=== PATIENT | female | born 1940 | race Caucasian/White ===

== ENCOUNTER 2017-09-20 13:44 | Emergency (ER) | payer MEDICARE, OTHER ==
[2014-03-04 15:01] VITALS: BMI 21.6
[~2017-09-20 13:44] MED LIST: ATIVAN0.5 MG PO; SPIRIVA18 MCG INH; SYMBICORT 16010.2 GM INH
[2017-09-20 15:55] LABS: BASOPHILS 0.1 % (0-2); EOSINOPHILS 1.3 % (0-7); HEMATOCRIT 44.1 % (36.0-48.0); HEMOGLOBIN 14.7 g/dL (12-16); IMMATURE GRANULOCYTES 0.3 % (0-5); LYMPHOCYTES 6.5 % (15-50); MCH 31.5 pg (26.0-34.0); MCHC 33.3 g/dL (31.0-37.0); MCV 94.4 fL (80.0-100.0); MEAN PLATELET VOLUME 10.6 fL (7.4-10.4); MONOCYTES 7.7 % (2-11); NEUTROPHILS 84.1 % (40-80); PLATELET COUNT 198 10x3/uL (130-400); RBC 4.67 10x6/uL (4.00-5.40); RDW 12.8 % (11.5-14.5); WBC 7.8 10x3/uL (4.8-10.8)
[2017-09-20 16:01] LABS: ALBUMIN 3.9 g/dL (3.4-5.0); ALKALINE PHOSPHATASE 107 U/L (46-116); ALT (SGPT) 26 U/L (10-68); BILIRUBIN - TOTAL 0.28 mg/dL (0.2-1.3); CALC OSMOLALITY 283 mosm/kg (275-300); CALCIUM 9.1 mg/dL (8.5-10.1); CARBON DIOXIDE 27.2 mmol/L (21.0-32.0); CHLORIDE - SERUM 102 mmol/L (98-107); CREATININE - SERUM 1.4 mg/dL (0.6-1.3); GLUCOSE 94 mg/dL (74-106); POTASSIUM - SERUM 4.6 mmol/L (3.5-5.1); PROTEIN - SERUM 8.1 g/dL (6.4-8.2); SODIUM 139 mmol/L (136-145); UREA NITROGEN 30 mg/dL (7-18); eGFR NON AFRICAN AMERICAN 39 mL/min (90-120)
[2017-09-20 16:10] LABS: CREATINE KINASE 97 UL (21-215); PRO BNP 326 pg/mL (0-125)
[2017-09-20 16:12] LABS: TROPONIN-I < 0.017 ng/mL (0.000-0.060)
[2017-09-20 16:45] LABS: AMYLASE - SERUM 120 U/L (25-115); LIPASE 247 U/L (73-393)
[2017-09-20 17:35] LABS: APPEARANCE CLEAR (CLEAR); BILIRUBIN NEGATIVE (NEGATIVE); COLOR YELLOW (YELLOW); GLUCOSE NEGATIVE (NEGATIVE); KETONE NEGATIVE (NEGATIVE); NITRITE NEGATIVE (NEGATIVE); PROTEIN TRACE mg/dL (NEGATIVE); SPECIFIC GRAVITY 1.015 (1.005-1.020); UROBILINOGEN NORMAL (NORMAL)
[2017-09-20 17:36] LABS: BACTERIA FEW /hpf (NONE SEEN); RED CELLS - URINE 0-5 /hpf (0-5); WHITE CELLS - URINE 0-5 /hpf (0-5)
== END 2017-09-20 20:01 | disposition home or self-care (01) ==
LOC: D.ER 13:44
PROVIDERS: Nurse Practitioner Family
DX: J44.1 Chronic obstructive pulmonary disease with (acute) exacerbation (principal); N39.0 Urinary tract infection, site not specified; J30.9 Allergic rhinitis, unspecified

== ENCOUNTER 2017-09-25 14:01 | Inpatient (IN) | payer MEDICARE, OTHER ==
[~2017-09-25] VITALS: Ht 162.6 cm; Wt 55.5 kg
--- NOTE | ~2017-09-25 | CN ---
PATIENT NAME:SAFIA VIGIL MEDICAL RECORD: [id number] : 44 LOCATION:D. D.2112 ADMIT DATE: 09/25/17 ACCOUNT: [id number] CONSULTING PHYSICIAN: JASPAL VELEZ MD REFERRING PHYSICIAN: ZAK JARAMILLO DO DATE OF CONSULTATION: 09/26/2017 CONSULT REQUESTING PHYSICIAN: Zak Jaramillo DO REASON FOR CONSULTATION: Acute exacerbation of chronic obstructive pulmonary disease, acute hypoxic respiratory failure. HISTORY OF PRESENT ILLNESS: Ms. Vigil is a 76-year-old female who has a history of severe COPD. According to the patient, she is sick for the last few days. She is coughing. She is wheezing. She has shortness of breath. She is positive for influenza A. REVIEW OF SYSTEMS: Mainly in the history of present illness. PAST MEDICAL HISTORY: 1. Hypoglycemia. 2. Chronic obstructive pulmonary disease. 3. Anxiety. PAST SURGICAL HISTORY: 1. She has a . 2. History of respiratory failure in the past. 3. Status post colonoscopy and colon resection. 4. Status post ileostomy. ALLERGIES: There are no known drug allergies. MEDICATIONS: On [place] was reviewed. PERSONAL AND SOCIAL HISTORY: The patient is an ex-smoker. She is a nondrinker. FAMILY HISTORY: Significant for cardiovascular disease and diabetes. PHYSICAL EXAMINATION: GENERAL: Now, the patient is lying comfortably in bed. She is not in acute distress. VITAL SIGNS: Her pulse ox is 97% on 2 liters nasal cannula. HEENT: Conjunctivae is pink. Sclerae nonicteric. NECK: Supple. No JVD. CHEST: There are bilateral crackles, wheeze on forceful expiration. HEART: Rhythm regular, normal sound, no murmur. ABDOMEN: Soft, bowel sounds present. No hepatosplenomegaly. RECTAL: Deferred. EXTREMITIES: No cyanosis, no clubbing, no pedal edema. SKIN: Warm, normal turgor. CENTRAL NERVOUS SYSTEM: The patient is awake and alert. There are no obvious cranial nerve abnormality. The gait was not tested. IMAGING: Chest radiograph, there is bibasilar interstitial prominence. There is some possible chronic interstitial changes. CONSULT REPORT [id number] SAFIA VIGIL OTHER LABORATORY DATA: CBC: The WBC is 6.9, hemoglobin 14.1, hematocrit 42.8, platelet count 142. Chemistry: Sodium is 138, potassium 4.1, BUN is 24, creatinine 1.3. ABG: The pH is 7.32, pCO2 of 47.9, the pO2 is 147, and bicarbonate is 25. IMPRESSION: 1. Acute exacerbation of chronic obstructive pulmonary disease. 2. Bilateral pneumonia, most likely community-acquired pneumonia. 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 3. Influenza A. 4. Acute hypoxic respiratory failure. 5. Anxiety. 6. Pneumonia, bilateral, most likely community-acquired pneumonia. RECOMMENDATION: 1. I will discontinue vancomycin, start Levaquin IV. Continue penicillin IV. Continue methylprednisolone IV, albuterol/ipratropium nebulizer. Start Brovana and budesonide nebulizer. 2. Xanax for anxiety. Dr. Jaramillo, thank you for involving me in the care of Ms. Vigil. TRANSINT:[id number] Voice Confirmation ID: [id number] DOCUMENT ID: [id number] JASPAL VELEZ MD at 1340 CC: ZAK JARAMILLO DO [id number] DICTATION DATE: 09/26/17 1536 ROCKET TEST FIRE WORKER: 09/26/17 1740 ADM IN [facility] [address] [place] [address]
[2017-09-25 15:50] LABS: ALBUMIN 3.2 g/dL (3.4-5.0); ANION GAP 16.1 mmol/L (8-16); BILIRUBIN - TOTAL 0.3 mg/dL (0.2-1.3); CALCIUM 8.6 mg/dL (8.5-10.1); CARBON DIOXIDE 25.5 mmol/L (21.0-32.0); CREATININE - SERUM 1.6 mg/dL (0.6-1.3); POTASSIUM - SERUM 4.6 mmol/L (3.5-5.1); PROTEIN - SERUM 6.7 g/dL (6.4-8.2)
[2017-09-25 15:52] LABS: BASOPHILS 0.1 % (0-2); EOSINOPHILS 0.1 % (0-7); HEMATOCRIT 42.8 % (36.0-48.0); HEMOGLOBIN 14.1 g/dL (12-16); IMMATURE GRANULOCYTES 0.1 % (0-5); LYMPHOCYTES 3.6 % (15-50); MCH 30.9 pg (26.0-34.0); MCHC 32.9 g/dL (31.0-37.0); MCV 93.9 fL (80.0-100.0); MEAN PLATELET VOLUME 10.8 fL (7.4-10.4); MONOCYTES 2.6 % (2-11); NEUTROPHILS 93.5 % (40-80); RBC 4.56 10x6/uL (4.00-5.40); RDW 12.8 % (11.5-14.5); WBC 6.9 10x3/uL (4.8-10.8)
[2017-09-25 15:58] LABS: INR 1.08 (0.85-1.17); PLATELET COUNT 142 10x3/uL (130-400); PROTIME 13.6 SECONDS (11.6-15.0)
[2017-09-25 16:23] LABS: MAGNESIUM - SERUM 1.8 mg/dL (1.8-2.4)
[2017-09-25 16:24] LABS: TROPONIN-I 0.066 ng/mL (0.000-0.060)
[2017-09-25 16:37] LABS: APPEARANCE CLEAR (CLEAR); BILIRUBIN NEGATIVE (NEGATIVE); COLOR YELLOW (YELLOW); GLUCOSE NEGATIVE (NEGATIVE); KETONE NEGATIVE (NEGATIVE); NITRITE NEGATIVE (NEGATIVE); PROTEIN TRACE mg/dL (NEGATIVE); SPECIFIC GRAVITY 1.025 (1.005-1.020); UROBILINOGEN NORMAL (NORMAL)
[2017-09-26 00:49] LABS: CKMB 2.4 U/L (0.0-3.6); CREATINE KINASE 93 UL (21-215); TROPONIN-I 0.149 ng/mL (0.000-0.060)
[2017-09-26 07:27] LABS: HEMATOCRIT 40.2 % (36.0-48.0); HEMOGLOBIN 13.3 g/dL (12-16); MCH 30.8 pg (26.0-34.0); MCHC 33.1 g/dL (31.0-37.0); MCV 93.1 fL (80.0-100.0); MEAN PLATELET VOLUME 10.8 fL (7.4-10.4); PLATELET COUNT 137 10x3/uL (130-400); RBC 4.32 10x6/uL (4.00-5.40); RDW 12.5 % (11.5-14.5)
[2017-09-26 07:28] LABS: WBC 2.5 10x3/uL (4.8-10.8)
[2017-09-26 07:50] LABS: LYMPHOCYTES 13 % (15-50); MONOCYTES 1 % (2-11); NEUTROPHILS 85 % (40-80); PLATELET ESTIMATE NORMAL
[2017-09-26 08:34] LABS: ALBUMIN 2.9 g/dL (3.4-5.0); ALKALINE PHOSPHATASE 71 U/L (46-116); ALT (SGPT) 24 U/L (10-68); CALC OSMOLALITY 283 mosm/kg (275-300); CARBON DIOXIDE 22.6 mmol/L (21.0-32.0); CHLORIDE - SERUM 105 mmol/L (98-107); CKMB 3.5 U/L (0.0-3.6); CREATINE KINASE 121 UL (21-215); CREATININE - SERUM 1.3 mg/dL (0.6-1.3); GLUCOSE 164 mg/dL (74-106); POTASSIUM - SERUM 4.1 mmol/L (3.5-5.1); PROTEIN - SERUM 6.8 g/dL (6.4-8.2); SODIUM 138 mmol/L (136-145); UREA NITROGEN 24 mg/dL (7-18); eGFR NON AFRICAN AMERICAN 42 mL/min (90-120)
[2017-09-26 08:35] LABS: TROPONIN-I 0.079 ng/mL (0.000-0.060)
[2017-09-26 13:12] LABS: CREATINE KINASE 148 UL (21-215); TROPONIN-I 0.051 ng/mL (0.000-0.060)
[2017-09-26 14:04] VITALS: BP 185/86; Ht 162.6 cm; Wt 55.5 kg
[2017-09-26 19:00] VITALS: BP 198/97
[2017-09-27 04:00] VITALS: BP 167/85
[2017-09-27 05:34] LABS: BASOPHILS 0 % (0-2); EOSINOPHILS 0 % (0-7); HEMATOCRIT 38.2 % (36.0-48.0); HEMOGLOBIN 12.5 g/dL (12-16); IMMATURE GRANULOCYTES 0.4 % (0-5); LYMPHOCYTES 4.8 % (15-50); MCH 30.5 pg (26.0-34.0); MCHC 32.7 g/dL (31.0-37.0); MCV 93.2 fL (80.0-100.0); MEAN PLATELET VOLUME 10.6 fL (7.4-10.4); NEUTROPHILS 91.8 % (40-80); PLATELET COUNT 135 10x3/uL (130-400); RDW 12.5 % (11.5-14.5)
[2017-09-27 05:39] LABS: ALBUMIN 2.8 g/dL (3.4-5.0); BILIRUBIN - TOTAL 0.38 mg/dL (0.2-1.3); CALCIUM 7.8 mg/dL (8.5-10.1); CREATININE - SERUM 1.4 mg/dL (0.6-1.3); MAGNESIUM - SERUM 1.8 mg/dL (1.8-2.4); PHOSPHOROUS 3.1 mg/dL (2.5-4.9); PROTEIN - SERUM 6.6 g/dL (6.4-8.2)
[2017-09-27 05:43] LABS: WBC 7.9 10x3/uL (4.8-10.8)
[2017-09-27 05:49] LABS: ANION GAP 10.3 mmol/L (8-16); POTASSIUM - SERUM 3.3 mmol/L (3.5-5.1)
[2017-09-27 07:44] VITALS: BP 164/95
[2017-09-27 12:29] VITALS: BP 185/92
[2017-09-27 15:09] VITALS: BP 179/88
[2017-09-27 20:00] VITALS: BP 201/100
[2017-09-28] VITALS: BP 170/87
[2017-09-28 04:37] LABS: BASOPHILS 0 % (0-2); EOSINOPHILS 0 % (0-7); HEMATOCRIT 39.7 % (36.0-48.0); HEMOGLOBIN 13.2 g/dL (12-16); IMMATURE GRANULOCYTES 0.5 % (0-5); LYMPHOCYTES 3.3 % (15-50); MCH 30.6 pg (26.0-34.0); MCHC 33.2 g/dL (31.0-37.0); MCV 91.9 fL (80.0-100.0); MEAN PLATELET VOLUME 10.7 fL (7.4-10.4); MONOCYTES 4.8 % (2-11); NEUTROPHILS 91.4 % (40-80); PLATELET COUNT 153 10x3/uL (130-400); RBC 4.32 10x6/uL (4.00-5.40); RDW 12.5 % (11.5-14.5); WBC 8.4 10x3/uL (4.8-10.8)
[2017-09-28 04:45] LABS: ALBUMIN 2.9 g/dL (3.4-5.0); ANION GAP 7.9 mmol/L (8-16); BILIRUBIN - TOTAL 0.34 mg/dL (0.2-1.3); CALCIUM 7.9 mg/dL (8.5-10.1); CARBON DIOXIDE 33.1 mmol/L (21.0-32.0); CREATININE - SERUM 1.4 mg/dL (0.6-1.3); PROTEIN - SERUM 6.7 g/dL (6.4-8.2)
[2017-09-28 09:19] VITALS: BP 177/101
[2017-09-28 13:05] VITALS: BP 172/92
[2017-09-28 16:04] VITALS: BP 192/88
[2017-09-28 20:00] VITALS: BP 178/96
[2017-09-29 04:00] VITALS: BP 150/80
[2017-09-29 05:45] LABS: ANION GAP 13.6 mmol/L (8-16); CALCIUM 8.2 mg/dL (8.5-10.1); CARBON DIOXIDE 27.3 mmol/L (21.0-32.0); CREATININE - SERUM 1.4 mg/dL (0.6-1.3); POTASSIUM - SERUM 3.9 mmol/L (3.5-5.1)
[2017-09-29 05:57] LABS: BASOPHILS 0 % (0-2); EOSINOPHILS 0 % (0-7); HEMATOCRIT 39.3 % (36.0-48.0); HEMOGLOBIN 13.3 g/dL (12-16); IMMATURE GRANULOCYTES 0.5 % (0-5); LYMPHOCYTES 4.5 % (15-50); MCH 30.8 pg (26.0-34.0); MCHC 33.8 g/dL (31.0-37.0); MEAN PLATELET VOLUME 10.9 fL (7.4-10.4); MONOCYTES 5.9 % (2-11); NEUTROPHILS 89.1 % (40-80); PLATELET COUNT 160 10x3/uL (130-400); RBC 4.32 10x6/uL (4.00-5.40); RDW 12.5 % (11.5-14.5); WBC 8.3 10x3/uL (4.8-10.8)
[2017-09-29 10:15] VITALS: BP 179/96
[2017-09-29 12:35] VITALS: BP 181/105
[2017-09-29 16:19] VITALS: BP 125/84
[2017-09-29 20:00] VITALS: BP 165/86
[2017-09-30] VITALS: BP 154/86
[2017-09-30 04:00] VITALS: BP 164/100
[2017-09-30 05:14] LABS: BASOPHILS 0 % (0-2); EOSINOPHILS 0.2 % (0-7); HEMATOCRIT 39.6 % (36.0-48.0); HEMOGLOBIN 13.1 g/dL (12-16); IMMATURE GRANULOCYTES 0.6 % (0-5); LYMPHOCYTES 9.3 % (15-50); MCH 30.5 pg (26.0-34.0); MCHC 33.1 g/dL (31.0-37.0); MCV 92.3 fL (80.0-100.0); MEAN PLATELET VOLUME 10.2 fL (7.4-10.4); MONOCYTES 7.8 % (2-11); NEUTROPHILS 82.1 % (40-80); PLATELET COUNT 164 10x3/uL (130-400); RBC 4.29 10x6/uL (4.00-5.40); RDW 12.6 % (11.5-14.5); WBC 8.1 10x3/uL (4.8-10.8)
[2017-09-30 05:41] LABS: ANION GAP 12.2 mmol/L (8-16); CALCIUM 8.3 mg/dL (8.5-10.1); CARBON DIOXIDE 27.4 mmol/L (21.0-32.0); CREATININE - SERUM 1.3 mg/dL (0.6-1.3); POTASSIUM - SERUM 3.6 mmol/L (3.5-5.1)
[2017-09-30 09:09] VITALS: BP 166/82
[2017-09-30 14:53] VITALS: BP 170/82
[2017-09-30 16:39] VITALS: BP 171/96
[2017-09-30 21:11] VITALS: BP 146/86
[2017-10-01 01:35] VITALS: BP 146/77
[2017-10-01 04:31] LABS: BASOPHILS 0.1 % (0-2); EOSINOPHILS 0.4 % (0-7); HEMATOCRIT 39.4 % (36.0-48.0); HEMOGLOBIN 12.8 g/dL (12-16); IMMATURE GRANULOCYTES 0.7 % (0-5); LYMPHOCYTES 6.8 % (15-50); MCH 30.3 pg (26.0-34.0); MCHC 32.5 g/dL (31.0-37.0); MCV 93.1 fL (80.0-100.0); MEAN PLATELET VOLUME 10.5 fL (7.4-10.4); MONOCYTES 7.4 % (2-11); NEUTROPHILS 84.6 % (40-80); PLATELET COUNT 194 10x3/uL (130-400); RBC 4.23 10x6/uL (4.00-5.40); RDW 12.6 % (11.5-14.5)
[2017-10-01 05:06] LABS: ALBUMIN 2.7 g/dL (3.4-5.0); ANION GAP 10.1 mmol/L (8-16); BILIRUBIN - TOTAL 0.35 mg/dL (0.2-1.3); CALCIUM 8.1 mg/dL (8.5-10.1); CARBON DIOXIDE 32.2 mmol/L (21.0-32.0); CREATININE - SERUM 1.4 mg/dL (0.6-1.3); PROTEIN - SERUM 6.2 g/dL (6.4-8.2)
[2017-10-01 05:17] LABS: POTASSIUM - SERUM 4.3 mmol/L (3.5-5.1)
[2017-10-01 05:33] VITALS: BP 155/79
[2017-10-01] MEDS ORDERED: LEVAQUIN750 MG PO (06:49)
[2017-10-01] MEDS ORDERED: CATAPRES0.1 MG PO (06:50)
[2017-10-01] MEDS ORDERED: IPRAT-ALBUT 0.5-3 ML INH (06:50)
[2017-10-01] MEDS ORDERED: NORVASC10 MG PO (06:50)
[2017-10-01] MEDS ORDERED: LISINOPRIL10 MG PO (06:50)
[2017-10-01] MEDS ORDERED: BROVANA15 MCG/2 M INH (06:50)
[2017-10-01] MEDS ORDERED: PULMICORT0.5 MG/21 UPD (06:51)
[2017-10-01] MEDS ORDERED: CELEXA20 MG PO (06:51)
[2017-10-01] MEDS ORDERED: MUCINEX DM ER1 EAC1 PO (06:51)
[2017-10-01] MEDS ORDERED: BENZONATATE200 MG PO (06:51)
[2017-10-01] MEDS ORDERED: DALIRESP500 MCG PO (06:51)
[2017-10-01] MEDS ORDERED: STERAPRED DS 1210 MG PO (06:52)
[2017-10-01 07:53] VITALS: BP 142/81
[2017-10-01 11:14] VITALS: BP 138/76
[2017-10-01 15:02] VITALS: BP 129/68
== END 2017-10-01 18:16 | DRG 193 ==
LOC: D.ER 14:01 → D.M2 21:34 → D.EDHOLD 21:55 → D.ER 21:55 → D.MS 09-26 06:54 → D.M2 09-26 06:54 → D.EDHOLD 09-26 06:54 → D.MS 09-26 07:21 → D.EDHOLD 09-26 16:54 → D.M2 09-26 16:54
PROVIDERS: Emergency Medicine; Family Medicine; Nurse Practitioner Family
DX: J10.00 Influenza due to other identified influenza virus with unspecified type of pneumonia (principal); J96.01 Acute respiratory failure with hypoxia; J44.0 Chronic obstructive pulmonary disease with (acute) lower respiratory infection; J44.1 Chronic obstructive pulmonary disease with (acute) exacerbation; J20.9 Acute bronchitis, unspecified; H35.30 Unspecified macular degeneration; F41.9 Anxiety disorder, unspecified; I10 Essential (primary) hypertension; E87.6 Hypokalemia; Z87.891 Personal history of nicotine dependence

== ENCOUNTER 2017-10-01 18:42 | Inpatient (IN) | payer MEDICARE ==
[~2017-10-01] VITALS: Ht 162.6 cm; Wt 56.2 kg
--- NOTE | ~2017-10-01 | RHP ---
PATIENT: SAFIA CALHOUN MEDICAL RECORD: [id number] ACCOUNT: [id number] LOCATION: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 HISTORY OF PRESENT ILLNESS: The patient admitted to the inpatient rehab for neurological condition of disuse myopathy. A 76-year-old female patient admitted on 09/25 with cough, wheezing, increasing shortness of breath, had gotten worse over the previous week. Upon admit, she was found to be positive for influenza B. She was also found to have pneumonia and acute exacerbation of COPD, respiratory failure and hypoxia. She had pulmonary consult and followed her throughout her stay. She has been receiving Tamiflu, steroid therapy, and IV antibiotics and slowly improved and is able to ambulate with some PT, but is still pretty weak, jittery, and very nervous with the use of steroids. She has proximal muscle weakness from getting up from bed to chair. She is currently on 3 liters of O2 via nasal cannula. She lives at home with her , was independent with ADLs and mobility. She is currently set up for [id number] assist for ADLs and [id number] assist for mobility. She and her would like her to return home hopefully to her prior level of functioning or better. Comorbidities in this patient include acute exacerbation of chronic obstructive pulmonary disease, bilateral pneumonia. She has got a history of influenza A and B, acute hypoxic respiratory failure, anxiety, elevated troponin secondary to stress leak, and tobacco use. PAST MEDICAL HISTORY: Significant for low blood sugars, chronic obstructive pulmonary disease, anxiety, macular degeneration, tobacco use, renal failure, sepsis, diarrhea. PAST SURGICAL HISTORY: Includes , tubal ligation, history of respiratory failure in the past. She has had a partial colon resection, post ileostomy with reversal, and polyp removal. ALLERGIES: PENICILLIN. CURRENT MEDICATIONS: Include albuterol updrafts. She is on prednisone, on a tapering dosage. Daliresp 500 mcg daily. She is on Zestril 10 mg daily, Levaquin 750 mg daily, citalopram 10 mg daily, amlodipine 10 mg daily, Ativan 1.5 mg b.i.d. p.r.n. She is on Mucinex 2 tabs b.i.d., clonidine 0.1 mg every 6 hours p.r.n., Pulmicort 0.5 mg b.i.d., Tessalon Perles 200 mg t.i.d. p.r.n., Brovana 15 mcg b.i.d., and MiraLax 17 grams in 8 ounces of water daily. HABITS: Does have a history of tobacco use. FAMILY HISTORY: Noncontributory. SOCIAL HISTORY: The patient hopes to return back home with her and get HISTORY AND PHYSICAL [id number] SAFIA CALHOUN back to her prior level of functioning. REVIEW OF SYSTEMS: GENERAL: Does complain of some weakness and fatigue. HEENT: Denies cold, cough, or congestion. CARDIOVASCULAR: Denies chest pain. PHYSICAL EXAMINATION: VITAL SIGNS: Stable, afebrile. GENERAL: A thin female, in no acute distress upon exam. HEENT: Normocephalic and atraumatic. Mucosa moist. NECK: Supple. No lymphadenopathy. LUNGS: Coarse breath sounds bilaterally with expiratory wheezes appreciated. HEART: Regular rate and rhythm. ABDOMEN: Benign. EXTREMITIES: No clubbing, cyanosis or edema. NEUROLOGIC: She seems intact. LABORATORY DATA: Her white count is 12.2, H&H of 13 and 39, platelet count is 218. Her sodium is 146, potassium 4.0, BUN and creatinine of 26 and 1.4, and blood sugar was noted to be 75. 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 The patient has potential to make improvement. We will institute the following multidisciplinary therapies including, but not limited to physical, occupational, respiratory, speech, nutritional services, prosthetics and orthotics. Given her complex condition and risk for more complications, rehabilitation services cannot be provided at a low level of care such as a retirement facility. PLAN: 1. Admit to [facility] for intensive inpatient therapy to include the following disciplines: A. Physical therapy to improve gait, all transfer skills and bed mobility to a modified independent level. B. Occupational therapy to improve activities of daily living to a modified independent level. C. Case management to assist with discharge planning and placement options. D. Nutrition to assist with nutritional needs. E. Rehabilitation nursing to assist in monitoring the patient's underlying medical conditions and to assist with any type of bowel or bladder management. 2. The patient's current medications will be continued. 3. The patient will be placed on standard fall precautions. 4. The patient's estimated length of stay is approximately 7-10 days. 5. Discuss this patient during care team staff meeting this week and will update FIM scores in the a.m. and we will treat appropriately throughout her stay. TRANSINT:[id number] Voice Confirmation ID: [id number] DOCUMENT ID: [id number] JIM notes whether there has been none or any medical/functional change since admission: HISTORY AND PHYSICAL [id number] SAFIA CALHOUN E - No change since preadmission screen. JIM attests patient continues to be appropriate for IRF: - Continues to be appropriate. JAKUB SILVER MD at 1344 CC: [id number] DICTATION DATE: 10/02/17 0846 FAMILY LIFE COUNSELOR: 10/02/17 1024 DIS IN 10/06/17 [facility] [address] [place] [address]
--- NOTE | ~2017-10-01 | DS ---
PATIENT:SAFIA CALHOUN :44 MEDICAL RECORD: [id number] DISCHARGE SUMMARY ADMISSION DATE: 10/01/17 DISCHARGE DATE: 10/06/17 This is a discharge dated 10/06/2017 from the inpatient rehab. PRIMARY DIAGNOSIS: Decreased functional ability and ability to provide activities of daily living secondary to diffuse myopathy secondary to influenza B. SECONDARY DIAGNOSES: 1. COPD exacerbation. 2. Pneumonia. 3. Hypertension. 4. Acute hypoxic respiratory failure. 5. Anxiety. 6. Macular degeneration. 7. Renal insufficiency. 8. Chronic diarrhea. HOSPITAL COURSE: Full H&P is located elsewhere on the chart on this 76-year-old female who was admitted to inpatient rehab for physical therapy and occupational therapy to improve gait, transfer skills, bed mobility, and activities of daily living to modified independent level. She was evaluated by PT and OT and their plans of care were followed. She required halfway care for observation, assessment, and medication administration. She remained on appropriate home medications. She was on supplemental oxygen to keep sats greater than 92%. She was on Brovana, Pulmicort, and DuoNeb nebulized for respiratory support; and Levaquin for antibiotic coverage. She was on a steroid taper for treatment of COPD exacerbation. She was cooperative with therapies, progressing towards goals. Case management was involved for discharge planning. She was considered stable for discharge on 10/06/2017. DISCHARGE MEDICATIONS: As per discharge medication reconciliation. DISCHARGE DISPOSITION: The patient is discharged home. She will continue her current diet and level of activity. She will have home health for continued nursing, PT, and OT. She will follow up with primary care in one week and specialist as directed. At least 30 minutes was spent in this discharge activity. TRANSINT:[id number] Voice Confirmation ID: [id number] DOCUMENT ID: [id number] Dictated By: MERI HUTCHINS I have interviewed/examined the above patient and agree with these documented findings. DISCHARGE SUMMARY REPORT [id number] SAFIA CALHOUN SCOTT MD at 1355 at 1349 CC: [id number] DICTATION DATE: 10/28/17 1502 ANESTHESIOLOGY TEACHER: 10/28/17 1606 DIS IN 10/06/17 [facility] [id number] [place] [address]
[~2017-10-01 18:42] MED LIST changes: +BENZONATATE200 MG PO; +BROVANA15 MCG/2 M INH; +CATAPRES0.1 MG PO; +CELEXA20 MG PO; +DALIRESP500 MCG PO; +IPRAT-ALBUT 0.5-3 ML INH; +LEVAQUIN750 MG PO; +LISINOPRIL10 MG PO; +MUCINEX DM ER1 EAC1 PO; +NORVASC10 MG PO; +PULMICORT0.5 MG/21 UPD; +STERAPRED DS 1210 MG PO
[2017-10-01 21:00] VITALS: BP 151/74
[2017-10-01 23:34] VITALS: BMI 21.3
[2017-10-02 06:32] LABS: BASOPHILS 0.1 % (0-2); EOSINOPHILS 1.4 % (0-7); HEMATOCRIT 39.8 % (36.0-48.0); HEMOGLOBIN 13.1 g/dL (12-16); IMMATURE GRANULOCYTES 0.6 % (0-5); LYMPHOCYTES 6.5 % (15-50); MCH 30.5 pg (26.0-34.0); MCHC 32.9 g/dL (31.0-37.0); MCV 92.8 fL (80.0-100.0); MEAN PLATELET VOLUME 10.2 fL (7.4-10.4); NEUTROPHILS 83.4 % (40-80); PLATELET COUNT 218 10x3/uL (130-400); RBC 4.29 10x6/uL (4.00-5.40); RDW 12.6 % (11.5-14.5)
[2017-10-02 06:34] LABS: WBC 12.2 10x3/uL (4.8-10.8)
[2017-10-02 06:48] LABS: ANION GAP 11.1 mmol/L (8-16); CALCIUM 8.6 mg/dL (8.5-10.1); CARBON DIOXIDE 30.9 mmol/L (21.0-32.0); CREATININE - SERUM 1.4 mg/dL (0.6-1.3)
[2017-10-02 08:00] VITALS: BP 138/66
[2017-10-02 14:00] VITALS: Ht 162.6 cm; Wt 56.2 kg
[2017-10-02 19:00] VITALS: BP 164/78
[2017-10-03 07:55] LABS: BASOPHILS 0.1 % (0-2); EOSINOPHILS 0.1 % (0-7); HEMATOCRIT 41.5 % (36.0-48.0); HEMOGLOBIN 13.8 g/dL (12-16); IMMATURE GRANULOCYTES 0.7 % (0-5); LYMPHOCYTES 5.8 % (15-50); MCH 30.7 pg (26.0-34.0); MCHC 33.3 g/dL (31.0-37.0); MCV 92.2 fL (80.0-100.0); MEAN PLATELET VOLUME 10.2 fL (7.4-10.4); NEUTROPHILS 87.3 % (40-80); RDW 12.5 % (11.5-14.5); WBC 10.9 10x3/uL (4.8-10.8)
[2017-10-03 07:57] LABS: PLATELET COUNT 298 10x3/uL (130-400)
[2017-10-03 08:12] LABS: ANION GAP 12.7 mmol/L (8-16); CALCIUM 9.1 mg/dL (8.5-10.1); CARBON DIOXIDE 28.4 mmol/L (21.0-32.0); CREATININE - SERUM 1.3 mg/dL (0.6-1.3); POTASSIUM - SERUM 4.1 mmol/L (3.5-5.1)
[2017-10-03 09:31] VITALS: BP 173/85
[2017-10-03 19:05] VITALS: BP 148/84
[2017-10-04 06:58] VITALS: BP 162/84
[2017-10-04 19:53] VITALS: BP 132/87
[2017-10-05 06:30] LABS: BASOPHILS 0.1 % (0-2); EOSINOPHILS 0.1 % (0-7); HEMATOCRIT 38.5 % (36.0-48.0); HEMOGLOBIN 12.5 g/dL (12-16); IMMATURE GRANULOCYTES 0.8 % (0-5); LYMPHOCYTES 7.7 % (15-50); MCH 30.3 pg (26.0-34.0); MCHC 32.5 g/dL (31.0-37.0); MCV 93.2 fL (80.0-100.0); MEAN PLATELET VOLUME 9.8 fL (7.4-10.4); MONOCYTES 6.9 % (2-11); NEUTROPHILS 84.4 % (40-80); PLATELET COUNT 261 10x3/uL (130-400); RBC 4.13 10x6/uL (4.00-5.40); RDW 12.6 % (11.5-14.5); WBC 10.2 10x3/uL (4.8-10.8)
[2017-10-05 06:58] LABS: ANION GAP 13.6 mmol/L (8-16); CALCIUM 8.7 mg/dL (8.5-10.1); CARBON DIOXIDE 27.5 mmol/L (21.0-32.0); CREATININE - SERUM 1.4 mg/dL (0.6-1.3); POTASSIUM - SERUM 4.1 mmol/L (3.5-5.1)
[2017-10-05 08:14] VITALS: BP 136/73
[2017-10-05 23:41] VITALS: BP 122/66
[2017-10-06 07:11] VITALS: BP 146/70
== END 2017-10-06 16:22 | disposition home health service (06) | DRG 91 ==
LOC: D.REHAB 18:42
PROVIDERS: Emergency Medicine
DX: G72.89 Other specified myopathies (principal); J18.9 Pneumonia, unspecified organism; J96.01 Acute respiratory failure with hypoxia; J44.1 Chronic obstructive pulmonary disease with (acute) exacerbation; J44.0 Chronic obstructive pulmonary disease with (acute) lower respiratory infection; F41.9 Anxiety disorder, unspecified; F17.200 Nicotine dependence, unspecified, uncomplicated; R79.89 Other specified abnormal findings of blood chemistry

== ENCOUNTER 2018-01-16 13:02 | Emergency (ER) | payer MEDICARE, OTHER ==
[~2018-01-16] VITALS: Ht 162.6 cm; Wt 52.6 kg
[2018-01-16 13:06] VITALS: BP 173/93; Ht 162.6 cm; Wt 52.6 kg
[2018-01-16 13:45] LABS: BASOPHILS 0.1 % (0-2); EOSINOPHILS 0.9 % (0-7); HEMATOCRIT 42.5 % (36.0-48.0); HEMOGLOBIN 14.4 g/dL (12-16); IMMATURE GRANULOCYTES 0.1 % (0-5); MCH 31.4 pg (26.0-34.0); MCHC 33.9 g/dL (31.0-37.0); MCV 92.6 fL (80.0-100.0); MEAN PLATELET VOLUME 10.5 fL (7.4-10.4); MONOCYTES 6.3 % (2-11); NEUTROPHILS 83.6 % (40-80); RBC 4.59 10x6/uL (4.00-5.40); RDW 12.9 % (11.5-14.5); WBC 8.1 10x3/uL (4.8-10.8)
[2018-01-16 14:01] LABS: ALBUMIN 3.4 g/dL (3.4-5.0); ALKALINE PHOSPHATASE 106 U/L (46-116); ALT (SGPT) 24 U/L (10-68); BILIRUBIN - TOTAL 0.42 mg/dL (0.2-1.3); CALC OSMOLALITY 270 mosm/kg (275-300); CALCIUM 8.6 mg/dL (8.5-10.1); CARBON DIOXIDE 28.2 mmol/L (21.0-32.0); CHLORIDE - SERUM 100 mmol/L (98-107); CREATININE - SERUM 1.4 mg/dL (0.6-1.3); GLUCOSE 97 mg/dL (74-106); POTASSIUM - SERUM 3.9 mmol/L (3.5-5.1); PROTEIN - SERUM 7.3 g/dL (6.4-8.2); SODIUM 134 mmol/L (136-145); UREA NITROGEN 22 mg/dL (7-18); eGFR NON AFRICAN AMERICAN 39 mL/min (90-120)
[2018-01-16 14:10] LABS: CKMB 1.9 U/L (0.0-3.6); CREATINE KINASE 67 UL (21-215); TROPONIN-I < 0.017 ng/mL (0.000-0.060)
[2018-01-16 14:14] LABS: PLATELET COUNT 203 10x3/uL (130-400)
[2018-01-16] MEDS ORDERED: LEVAQUIN500 MG PO (16:45)
== END 2018-01-16 17:00 | disposition home or self-care (01) ==
LOC: D.ER 13:02
PROVIDERS: Family Medicine
DX: J20.9 Acute bronchitis, unspecified (principal); J44.9 Chronic obstructive pulmonary disease, unspecified

== ENCOUNTER 2018-02-08 16:18 | Emergency (ER) | payer MEDICARE, OTHER ==
[~2018-02-08] VITALS: Ht 162.6 cm; Wt 51.8 kg
[~2018-02-08 16:18] MED LIST changes: +LEVAQUIN500 MG PO
[2018-02-08 17:04] VITALS: Ht 162.6 cm; Wt 51.8 kg
[2018-02-08] MEDS ORDERED: SPIRIVA18 MCG INH (17:08)
[2018-02-08 21:47] LABS: BASOPHILS 0 % (0-2); EOSINOPHILS 0.5 % (0-7); HEMATOCRIT 45.3 % (36.0-48.0); HEMOGLOBIN 15.2 g/dL (12-16); IMMATURE GRANULOCYTES 0.2 % (0-5); LYMPHOCYTES 5.9 % (15-50); MCH 31.2 pg (26.0-34.0); MCHC 33.6 g/dL (31.0-37.0); MEAN PLATELET VOLUME 11.1 fL (7.4-10.4); MONOCYTES 4.4 % (2-11); PLATELET COUNT 203 10x3/uL (130-400); RBC 4.87 10x6/uL (4.00-5.40); RDW 12.6 % (11.5-14.5); WBC 6.4 10x3/uL (4.8-10.8)
[2018-02-08 21:58] LABS: ALBUMIN 3.7 g/dL (3.4-5.0); ALKALINE PHOSPHATASE 111 U/L (46-116); ALT (SGPT) 25 U/L (10-68); BILIRUBIN - TOTAL 0.38 mg/dL (0.2-1.3); CALC OSMOLALITY 283 mosm/kg (275-300); CALCIUM 9.2 mg/dL (8.5-10.1); CARBON DIOXIDE 29.5 mmol/L (21.0-32.0); CHLORIDE - SERUM 103 mmol/L (98-107); CREATININE - SERUM 1.4 mg/dL (0.6-1.3); GLUCOSE 155 mg/dL (74-106); POTASSIUM - SERUM 4.6 mmol/L (3.5-5.1); PROTEIN - SERUM 7.9 g/dL (6.4-8.2); SODIUM 138 mmol/L (136-145); UREA NITROGEN 26 mg/dL (7-18); eGFR NON AFRICAN AMERICAN 39 mL/min (90-120)
[2018-02-08 22:07] LABS: CREATINE KINASE 75 UL (21-215); PRO BNP 475 pg/mL (0-450)
[2018-02-08 22:18] LABS: TROPONIN-I < 0.017 ng/mL (0.000-0.060)
[2018-02-09] MEDS ORDERED: NORCO 7.5/325 T1 TA1 PO (01:17)
[2018-02-09 03:17] VITALS: BP 167/86
== END 2018-02-09 02:40 | disposition home or self-care (01) ==
LOC: D.ER 16:18
PROVIDERS: Emergency Medicine
DX: R07.81 Pleurodynia (principal); I10 Essential (primary) hypertension; J44.9 Chronic obstructive pulmonary disease, unspecified

== ENCOUNTER → 2018-03-14 14:33 | Outpatient (CLI) | payer MEDICARE, OTHER ==
[2018-02-08 17:04] VITALS: BMI 19.6
[~2018-03-14 14:33] MED LIST changes: +NORCO 7.5/325 T1 TA1 PO
== END | disposition home or self-care (01) ==
LOC: D.RT 14:00
DX: J44.9 Chronic obstructive pulmonary disease, unspecified (principal)

== ENCOUNTER → 2019-01-29 19:00 | Outpatient (CLI) | payer MEDICARE, OTHER ==
[2018-02-08 17:04] VITALS: BMI 19.6
[2019-02-03 12:08] LABS: IMMUNOGLOBULIN E 152 IU/mL (6-495)
[2019-02-04 17:08] LABS: FUNGAL - ASP FLAVUS Negative (Neg:<1:1); FUNGAL - ASP NIGER Negative (Neg:<1:1); FUNGAL - ASPER FUMIGATUS Negative (Neg:<1:1)
== END | disposition home or self-care (01) ==
LOC: D.LABREF 19:00
PROVIDERS: ATTEND Internal Medicine Pulmonary Disease
DX: J44.9 Chronic obstructive pulmonary disease, unspecified (principal)

== ENCOUNTER 2020-10-27 20:37 | Emergency (ER) | payer MEDICARE, OTHER ==
[~2020-10-27] VITALS: Ht 162.6 cm; Wt 54.5 kg
[2020-10-27 20:42] VITALS: Ht 162.6 cm; Wt 54.5 kg
[2020-10-27 22:27] VITALS: BP 148/74
== END 2020-10-27 22:31 | disposition home or self-care (01) ==
LOC: D.ER 20:37
DX: T18.128A Food in esophagus causing other injury, initial encounter (principal); I10 Essential (primary) hypertension; J44.9 Chronic obstructive pulmonary disease, unspecified

== ENCOUNTER → 2020-11-10 07:58 | Outpatient (CLI) | payer MEDICARE, OTHER ==
[2020-10-27 20:42] VITALS: BMI 20.6
== END | disposition home or self-care (01) ==
LOC: D.RAD 07:58
PROVIDERS: ATTEND Otolaryngology
DX: R13.10 Dysphagia, unspecified (principal)